=== PATIENT | female | born 1970 | race Caucasian/White ===

== ENCOUNTER → 2021-10-29 14:48 | Outpatient (BNVA) | payer OTHER, SELFPAY | PROVIDERS: Family Provider Nurse Practitioner Family; PCP Nurse Practitioner Family; Referring Provider Emergency Medicine; Visit Provider Internal Medicine | DX: E03.9 Hypothyroidism, unspecified (principal); E55.9 Vitamin D deficiency, unspecified | CPT/HCPCS: 82306; 84439; 84443; 84480; 86376; 86800 ==

== ENCOUNTER → 2021-12-30 15:45 | Outpatient (BNVA) | payer OTHER, SELFPAY | PROVIDERS: Family Provider Nurse Practitioner Family; PCP Emergency Medicine; Visit Provider Internal Medicine | DX: E03.9 Hypothyroidism, unspecified (principal) | CPT/HCPCS: 84439; 84443 ==

== ENCOUNTER → 2022-01-05 14:00 | Outpatient (BNVA) | payer OTHER, SELFPAY | PROVIDERS: Family Provider Nurse Practitioner Family; PCP Emergency Medicine; Visit Provider Internal Medicine | DX: E03.9 Hypothyroidism, unspecified (principal); E55.9 Vitamin D deficiency, unspecified; G47.00 Insomnia, unspecified | CPT/HCPCS: 84480 ==

== ENCOUNTER 2022-03-02 13:11 | Outpatient (CLI) | payer OTHER, SELFPAY ==
[2022-03-02 14:04] LABS: Free T4 Free Thyroxine 1.05 ng/dL (0.82-1.77)
[2022-03-03 09:58] LABS: T3 Total 261 ng/dL (76-181)
[2022-03-06 13:05] LABS: TSH Receptor Binding Antibody <1.00 IU/L (< OR = 2.00)
== END 2022-03-02 13:12 | disposition home or self-care (01) ==
LOC: LAB 13:12
PROVIDERS: Family Provider Nurse Practitioner Family; PCP Emergency Medicine; Visit Provider Internal Medicine
DX: E03.9 Hypothyroidism, unspecified (principal)
CPT/HCPCS: 36415; 83516; 84439; 84480

== ENCOUNTER 2022-03-11 14:24 | Outpatient (CLI) | payer OTHER, SELFPAY ==
[2022-03-11 15:47] LABS: Free T4 Free Thyroxine 2.12 ng/dL (0.82-1.77); Thyroid Stimulating Hormone 0.52 uIU/mL (0.27-4.20)
== END 2022-03-11 14:25 | disposition home or self-care (01) ==
LOC: LAB 14:26
PROVIDERS: PCP Emergency Medicine; Visit Provider Internal Medicine
DX: E03.9 Hypothyroidism, unspecified (principal)
CPT/HCPCS: 84439; 84443

== ENCOUNTER → 2022-05-04 11:59 | Outpatient (BNVA) | payer OTHER, SELFPAY | PROVIDERS: PCP Emergency Medicine; Visit Provider Internal Medicine | DX: E03.9 Hypothyroidism, unspecified (principal); G47.00 Insomnia, unspecified; E55.9 Vitamin D deficiency, unspecified | CPT/HCPCS: 36415; 84439; 84443 ==

== ENCOUNTER 2022-07-01 11:24 | Outpatient (CLI) | payer OTHER, SELFPAY ==
[2022-07-01 13:38] LABS: Free T4 Free Thyroxine 1.37 ng/dL (0.82-1.77); Thyroid Stimulating Hormone 2.41 uIU/mL (0.27-4.20)
== END 2022-07-01 11:25 | disposition home or self-care (01) ==
PROVIDERS: PCP Emergency Medicine; Visit Provider Internal Medicine
DX: E03.9 Hypothyroidism, unspecified (principal)
CPT/HCPCS: 36415; 84439; 84443

== ENCOUNTER 2022-10-23 08:44 | Outpatient (CLI) | payer OTHER, SELFPAY ==
[2022-10-23 10:24] LABS: 25 Hydroxy Vitamin D 29 ng/mL (30-100); Alanine Aminotransferase 12 U/L (0-33); Albumin Level 4.2 g/dL (3.5-5.2); Alkaline Phosphatase 100 U/L (35-105); Anion Gap 16.4 (5-19); Aspartate Amino Transferase 14 U/L (0-32); Blood Urea Nitrogen 9 mg/dL (6-20); Calcium 9.8 mg/dL (8.5-10.5); Carbon Dioxide 23 mmol/L (22-29); Chloride 105 mmol/L (98-107); Globulin 3.2 g/dL (1.3-4.6); Glomerular Filtration Rate 129.1 mL/min (90-130); Glucose 142 mg/dL (65-115); Osmolality Calculated 291 mOsm/kg (285-295); Potassium 4.4 mmol/L (3.5-5.1); Sodium 140 mmol/L (136-145); Thyroid Stimulating Hormone 9.04 uIU/mL (0.27-4.20); Total Bilirubin 0.2 mg/dL (0.15-1.2); Total Protein 7.4 g/dL (6.6-8.7)
[2022-10-23 11:05] LABS: Free T4 Free Thyroxine 1.49 ng/dL (0.82-1.77)
[2022-10-24 10:20] LABS: T3 Total 86 ng/dL (76-181)
[2022-10-29 01:19] LABS: Plasma Renin Activity LC/MS/MS 0.12 ng/mL/h (0.25-5.82)
== END 2022-10-23 08:45 | disposition home or self-care (01) ==
PROVIDERS: PCP Emergency Medicine; Visit Provider Internal Medicine
DX: E03.9 Hypothyroidism, unspecified (principal); E27.8 Other specified disorders of adrenal gland; E55.9 Vitamin D deficiency, unspecified; G47.00 Insomnia, unspecified
CPT/HCPCS: 36415; 80053; 82088; 82306; 84244; 84439; 84443; 84480